=== PATIENT | male | born 1990 | race Caucasian/White ===

== ENCOUNTER 2021-12-19 10:05 | Emergency (ER) | payer OTHER, SELFPAY ==
[2021-12-19 10:27] VITALS: BP 129/79; PULSE 77; RESP 18; TEMP 36.7; O2SAT 100
--- NOTE | 2021-12-19 10:46 | ED.URI ---
HPI - URI/Sore Throat General Chief Complaint: Upper Respiratory Infection Stated Complaint: nasal congestion and pressure Time Seen by Provider: 12/19/21 10:16 Source: patient Mode of arrival: ambulatory Limitations: no limitations History of Present Illness HPI Narrative: 31-year-old male presents to urgent care with complaints of sinus pressure, nasal congestion, postnasal drip, dry cough for the past month. Patient has been taking [id number] Farnaz and Sudafed with minimal relief. Patient denies recent travel. Patient denies sick contacts. Patient denies fever, bodies, chills, nausea, vomiting or diarrhea. MD elicited complaint: cough, rhinorrhea, nasal congestion and sinus pain Onset (ago): month(s) (1) Able to tolerate fluids by mouth: Yes Relieving factors: nothing Treatments prior to arrival: cold medicine Related Data Allergies Allergy/AdvReac Type Severity Reaction Status Date / Time No Known Allergies Allergy Verified 12/19/21 10:36 Review of Systems Constitutional: Constitutional: Denies chills, Denies fatigue, Denies fever(s) and Denies weakness ENT: Denies dizziness, Reports nasal congestion and Denies sore throat Comments: Sinus pressure, postnasal drip Cardiovascular: Cardiovascular: Denies chest pain, Denies rapid heart rate and Denies slow heart rate Respiratory: Respiratory: Denies chest congestion, Reports cough, Denies dyspnea and Denies wheezing Gastrointestinal: Gastrointestinal: Denies abdominal pain, Denies diarrhea, Denies nausea and Denies vomiting Integumentary/Breasts: Skin/Breast: Denies rash Neurologic: Denies dizziness PMFSH Past Medical History Medical History (Updated 12/19/21 @ 10:50 by Fabi Jones APRN) Hernia Social History Social History (Updated 12/19/21 @ 10:47 by Fabi Jones APRN) Smoking status: Former smoker Comments At time of signature, I agree with nursing past medical, surgical, social and family history. There is no relevant family history pertinent to the presenting complaint. Exam Const: General: no acute distress and alert Nutritional Appearance: well nourished Orientation/consciousness: patient oriented x3 HENMT: Ears: external ears normal and TM's normal bilaterally General nose exam: Nasal discharge present purulent Face and sinus: sinus tenderness frontal Mouth: Yes moist mucous membranes Teeth and gingiva: dentition normal Other: Right-sided nasal congestion noted Eyes: Pupils: Equal, round and reactive pupils present Neck: Neck: normal visual inspection Resp: Effort & Inspection: normal respiratory effort Auscultation: clear to auscultation bilaterally Cardio: Rate: regular rate Rhythm: regular rhythm Skin: General skin exam: normal color Rashes: no rashes Neuro: General: patient oriented x3 and moves all extremities Extrem: General: normal to inspection Psych: Appearance: grossly normal Mental Status: mental status grossly normal Affect: normal affect Attitude: cooperative Thought content: Yes Normal thought content present Course Course Level of Care: Express Care Visit Vital Signs Vital signs: Vital Signs Temperature 36.7 C 12/19/21 10:27 Pulse Rate 77 12/19/21 10:27 Respiratory Rate 18 12/19/21 10:27 Blood Pressure 129/79 12/19/21 10:27 Pulse Oximetry 100 12/19/21 10:27 Temperature 36.7 C 12/19/21 10:27 Pulse Rate 77 12/19/21 10:27 Respiratory Rate 18 12/19/21 10:27 Blood Pressure 129/79 12/19/21 10:27 Pulse Oximetry 100 12/19/21 10:27 MDM - URI/Sore Throat MDM Narrative Medical decision making narrative: Patient agrees to continue Farnaz daily. Patient agrees take medications as prescribed. Patient agrees to follow-up with primary care provider if symptoms not improved Differential Diagnosis Differential diagnosis: Likely otitis media, viral infection and bronchitis Critical Care Time Critical Care Time Critical Care Time: No Discharge Plan D
== END 2021-12-19 10:54 | disposition home or self-care (01) ==
PROVIDERS: Emergency Provider Nurse Practitioner Family
DX: J01.10 Acute frontal sinusitis, unspecified (principal); Z87.891 Personal history of nicotine dependence
CPT/HCPCS: 99203; G0463